=== PATIENT | male | born 1950 | race Caucasian/White ===

== ENCOUNTER 2020-04-23 09:59 | Inpatient (IN) | payer MEDICARE ==
[~2020-04-23 09:59] MED LIST: Dexamethasone 20 MG/5 ML VIAL ONE; Glycopyrrolate 0.2 MG/ML 5 ML SYRINGE ONE; Ketorolac Tromethamine 30 MG/ML VIAL ONE; Lidocaine 1% PF 5 ML VIAL ONE; Ondansetron PF 4 MG/2 ML Vial ONE; PHENYLEPHRINE-NS 100 MCG/ML 10 ML SYRINGE ONE; PROPOFOL 200 MG/20 ML VIAL ONE; Rocuronium Bromide 10 MG/ML (10ML VIAL) ONE; Succinylcholine 200 MG/10 ml SYRINGE FS ONE
[2020-04-23 10:33] LABS: #Eosinphils 0.1 thou/uL (0.0-0.7); #Lymphocytes 1.9 thou/uL (1.20-3.40); #Monocytes 0.4 thou/uL (0.11-0.59); %Basophils 0.4 % (0.0-1.0); %Eosinophils 1.6 % (0.0-10.0); %Lymphocytes 25.4 % (21.0-51.0); %Monocytes 5.6 % (0.0-10.0); Hemoglobin 13.9 g/dL (14.0-18.0); Mean Corpuscular HGB CONC 33.5 g/dL (32.0-36.0); Mean Corpuscular Hemoglobin 30.4 pg (27.0-31.0); Mean Corpuscular Volume 90.6 fL (78.0-98.0); Mean Platelet Volume 6.9 fL (7.4-10.4); Platelet Count 225 thou/uL (130-400); RBC Distribution Width 13.9 % (11.5-14.5); Red Blood Cell (RBC) Count 4.59 mill/uL (4.70-6.10); White Blood Cell (WBC) Count 7.5 thou/uL (4.8-10.8)
--- NOTE | 2020-04-23 10:40 | RAD ---
EXAM: XR Knee Rt 4 View STANDARD PROVIDED CLINICAL HISTORY: Pain FINDINGS: There is no evidence for fracture or other acute osseous abnormality. Alignment appears anatomic. Siria nt spaces appear preserved. IMPRESSION: No evidence for an acute osseous abnormality. If there is persistent clinical concern, conservative m anagement and follow-up imaging advised.
[2020-04-23 11:04] LABS: ALT (SGPT) 7 U/L (8-55); AST (SGOT) 12 U/L (5-34); Albumin 3.8 g/dL (3.4-4.8); Alkaline Phosphatase 84 U/L (40-110); Anion Gap 15 mmol/L (10-20); BUN (Urea Nitrogen) 8 mg/dL (8.4-25.7); Bilirubin, Total 0.9 mg/dL (0.2-1.2); CK (CPK) 44 U/L (30-200); Calc. Creatinine Clearance 0 mL/min (70-130); Calcium 9.2 mg/dL (7.8-10.44); Carbon Dioxide 23 mmol/L (23-31); Chloride 107 mmol/L (98-107); Globulin 3.4 g/dL (2.4-3.5); Glucose 91 mg/dL (80-115); Potassium 3.9 mmol/L (3.5-5.1); Protein, Total 7.2 g/dL (5.8-8.1); Sodium 141 mmol/L (136-145)
[2020-04-23] MEDS ORDERED: Fentanyl 100 MCG/2 ML VIAL ONE ×5 (11:14→19:23)
--- NOTE | 2020-04-23 11:42 | CT ---
EXAM: CT Brain WO Con PROVIDED CLINICAL HISTORY: Fall COMPARISON: None FINDINGS: The ventricular system is nondilated. There is extensive encephalomalacia in the distribution of the left MCA. There is no evidence for intracranial hemorrhage or mass effect. There is no shift of the midline structures. The basilar cisterns appear patent. There is opacification of the left maxillary sinus with associated wall thickening and volume loss, compatible with chronic sinusitis. There is no evidence for an acute abnormality involving the extracranial soft tissues are osseous structures a s visualized. IMPRESSION: No evidence for intracranial hemorrhage or mass effect.
--- NOTE | 2020-04-23 11:48 | CT ---
EXAM: CT cervical spine PROVIDED CLINICAL HISTORY: Injury after a fall. Patient complains of right arm pain. TECHNIQUE: Contiguous axial CT images are obtained through the cervical spine from the skull base to the T3 leve l. Sagittal and coronal reformatted images are provided. COMPARISON: None FINDINGS: Postoperative changes related to anterior cervical fusion are present at the C5-6 level with anterior plate and screws transfixing this level. There is no hardware complication seen. There are degenerative changes seen at the C4-5 and to a lesser extent at the C6-7 levels with disc osteophyte complex present. There is a right posterolateral prominent osteophyte at C4-5 level which results in moderate to severe right-sided neural foraminal narrowing. There is mild to moderate right-sided n eural foraminal narrowing C5-6 level again related to bony encroachment. Posterior osteophyte formation at the C5-6 level results in effacement of ventral subarachnoid space with encroachment on the spinal cord. A left posterolateral prominent osteophyte/uncinate process hypertrophy at the C6-7 level results in moderate to severe left-sided neural foraminal narrowing. No fracture or traumatic subluxation is seen involving the cervical spine. No prevertebral soft tissue swelling apparent. Visualized lung apices appear clear. Visualized thyroid gland demonstrates a grossly normal nonenhanced CT appearance. Scattered vascular calcifications are seen. IMPRESSION: 1. Postoperative and degenerative changes of the cervical spine. 2. No fracture or subluxation involving the cervical spine..
--- NOTE | 2020-04-23 11:52 | CT ---
CT abdomen and pelvis with IV contrast CT lumbar spine noncontrast HISTORY: Fall. Injury. FINDINGS: Minimal atelectasis at the right lung base. No free air or free fluid within the abdomen. A septated cyst within the lateral aspect of the liver dome measures up to 1.2 cm. Calcified granulomata of the spleen and liver consistent with healed granulomatous disease. Diverticula arise from the colon without adjacent inflammation. Vertebral body heights and alignment of the lumbar spine maintained. Oblique fracture partially visualized through the right femoral neck. IMPRESSION : Right hip fracture. No intra-abdominal injury.
--- NOTE | 2020-04-23 12:25 | RAD ---
EXAM: XR Hip Rt 2-3 View PROVIDED CLINICAL HISTORY: Pain status post injury COMPARISON: None FINDINGS: Nondisplaced fracture is demonstrated involving the right femoral neck. No additional fracture is cristian dent. Right hip joint space appears preserved. Contrast material seen within the urinary bladder. IMPRESSION: Nondisplaced right femoral neck fracture.
--- NOTE | 2020-04-23 12:26 | RAD ---
EXAM: XR Femur Rt 2 View STANDARD PROVIDED CLINICAL HISTORY: Pain status post injury COMPARISON: None FINDINGS: Nondisplaced right femoral neck fracture. No additional fracture is evident. Right hip and knee joint spaces appear preserved. IMPRESSION: Nondisplaced right femoral neck fracture.
[2020-04-23 13:26] LABS: PTT 26.4 sec (22.9-36.1); Prothrombin Time 13.1 sec (12.0-14.7)
--- NOTE | 2020-04-23 13:40 | RAD ---
Right hip 2 views HISTORY: Hip fracture. FINDINGS: AP and oblique views confirm oblique fracture through the femoral neck with very mild valgu s angulation.
--- NOTE | 2020-04-23 13:48 | RAD ---
EXAM: XR Pelvis AP STANDARD PROVIDED CLINICAL HISTORY: Preop COMPARISON: None FINDINGS: Nondisplaced right femoral neck fracture is redemonstrated. No additional fracture is evident. Excret ed contrast material is present within the urinary bladder, obscuring portions of the sacrum. Hip joint spaces appear preserved. IMPRESSION: Nondisplaced right femoral neck fracture.
[2020-04-23] MEDS ORDERED: Morphine 4 MG/ML VIAL ONE (14:56)
[2020-04-23] MEDS ORDERED: Ondansetron PF 4 MG/2 ML Vial ONE (14:57)
[2020-04-23] MEDS ORDERED: CEFAZOLIN 2 GM in Premix Bag 1 BAG IVPB SCH (15:30)
[2020-04-23] MEDS ORDERED: Neomycin-Polymyxin 1 ML AMP ONE (15:58)
[2020-04-23 16:05] LABS: SARS-CoV-2 NAA Rapid Test Not Detected (NotDetected)
--- NOTE | 2020-04-23 16:46 | HP ---
This is Conner Lafleur PA-C dictating a report for Dr. Fowler. REQUESTING PHYSICIAN: Dr. Hartman. ATTENDING SURGEON: Dr. Fowler. CONSULTATIONS: Orthopedics, Dr. Lam. HISTORY OF PRESENT ILLNESS: The patient is a 69-year-old man, who was brought to the emergency department after sustaining a ground level fall. The patient lives in an assisted living for the past 3 months after having a CVA. The patient primarily has expressive aphasia due to his CVA and some diffuse weakness. The patient reports that he has had no loss of consciousness. He underwent evaluation and examination in the Emergency Department and was noted to have a right femoral neck fracture at which time we were asked to evaluate the patient for admission and obtain Orthopedic consultations. Unfortunately, the patient did not bring any medical records with him due to his expressive aphasia. It is very difficult to elicit any history from him, and review of [employer] does not appear that he has previous records in our system either. ALLERGIES: NONE. CURRENT MEDICATIONS: 1. Amlodipine. 2. Aspirin. 3. Lisinopril. 4. Atorvastatin. 5. Plavix. 6. Docusate. 7. Potassium chloride tablets. PAST MEDICAL HISTORY: Hypertension, CVA. PAST SURGICAL HISTORY: Unknown. SOCIAL HISTORY: Again, the patient lives in an assisted living currently. Denies drug, tobacco, or alcohol use. REVIEW OF SYSTEMS: A 10-point review of systems is negative unless otherwise stated PHYSICAL EXAMINATION: VITAL SIGNS: Blood pressure 159/93, heart rate 72, respirations 24, oxygen saturation 100% on room air, temperature is 97.8. GENERAL: The patient is resting comfortably in bed. He is awake and alert and is able to answer yes/no questions. Primarily, he does attempt to answer other questions, but his expressive aphasia makes this extremely difficult and appears to be frustrating for him also. HEENT. Head is normocephalic and atraumatic. Eyes, extraocular motion intact. PERRLA bilaterally. Ears are atraumatic without discharge. Nose is atraumatic without discharge. Oropharynx is clear. NECK: Nontender. Trachea is midline. No JVD. CHEST: Clear to auscultation with good inspiratory and expiratory effort. HEART: Regular rate and rhythm. ABDOMEN: Soft, flat, nontender with active bowel sounds. PELVIS: Stable with tenderness to palpation to the right side consistent with his fracture. EXTREMITIES: Neurovascularly intact x4. SKIN: The patient appears to have a rash above his right eye, on his right cheek, and on his upper extremities. BACK: Atraumatic and nontender. LABORATORY FINDINGS: White blood cell count 7.5, hemoglobin 13.9, hematocrit 41.6, platelets 225. Sodium 141, potassium 3.9, chloride 107, CO2 23, BUN 8, creatinine 1.19, glucose 91. LFTs are unremarkable. Troponin is 0.011. PT 13, INR 1.0, PTT 26. RADIOGRAPHIC FINDINGS: AP pelvis shows a nondisplaced right femoral neck fracture. Views of the right hip again demonstrate a femoral neck fracture. Views of the right femur once again demonstrate the femoral neck fracture. CT of the abdomen and pelvis with IV contrast shows the right hip fracture. No intraabdominal injury. CT of the C-spine without contrast shows no fracture or subluxation involving the C-spine. CT of the brain without contrast shows no evidence of intracranial hemorrhage or mass effect. ASSESSMENT AND PLAN: 1. Status post ground level fall. 2. Right proximal femur fracture. 3. Acute pain secondary to above. 4. History of cerebrovascular accident with expressive aphasia. 5. History of hypertension. 6. History of Plavix and aspirin use. PLAN: Plan will be to keep the patient n.p.o. The patient was evaluated in the emergency department by Orthopedics and they plan to take him to the operating room today. We will await his COVID test. Postoperatively, we will begin physical and occupational therapy and discuss placement afterwards. The evaluation, examination, laboratory, and radiographic findings were discussed with Dr. Fowler prior to this dictation. Job ID: [id number]
[2020-04-23] MEDS ORDERED: HYDROmorphone 2 MG/ML VIAL ONE (17:23)
[2020-04-23] MEDS ORDERED: HYDROmorphone 2 MG/ML VIAL SLOW IVP PRN (17:25)
[2020-04-23] MEDS ORDERED: Ondansetron HCl/PF 4 MG/2 ML Vial IVP PRN (17:25)
[2020-04-23] MEDS ORDERED: Promethazine HCl 25 MG/ML VIAL SLOW IVP PRN (17:25)
[2020-04-23] MEDS ORDERED: Dextrose 5% in Water 1,000 ML IV PRN (18:45)
[2020-04-23] MEDS ORDERED: Cyclobenzaprine 10 MG TAB PO PRN (18:45)
[2020-04-23] MEDS ORDERED: Ondansetron PF 4 MG/2 ML Vial IVP PRN (18:45)
[2020-04-23] MEDS ORDERED: Dextrose 50% Abboject 50 ML SYRINGE SLOW IVP PRN (18:45)
[2020-04-23] MEDS ORDERED: hydrALAZINE 20 MG/ML VIAL SLOW IVP PRN (18:45)
[2020-04-23] MEDS ORDERED: Sodium Chloride 0.9% 1,000 ML IV SCH (18:45)
[2020-04-23] MEDS ORDERED: Ondansetron ODT 4 MG TAB PO PRN (18:45)
[2020-04-23] MEDS ORDERED: traMADol HCl 50 MG TAB PO PRN (18:45)
--- NOTE | 2020-04-23 19:22 | OP ---
DATE OF PROCEDURE: 04/23/2020 PROCEDURE PERFORMED: Right hip bipolar hemiarthroplasty. PREOPERATIVE DIAGNOSIS: Displaced right femoral neck fracture. POSTOPERATIVE DIAGNOSIS: Displaced right femoral neck fracture. COMPLICATIONS: None. ESTIMATED BLOOD LOSS: 150 mL. [facility] DIRECTOR: Gil Denise PA-C IMPLANTS: DePuy Basic Press-Dit stem size 7, [place], size +8.5 with a 56-mm bipolar shell. INDICATIONS: Mr. Restrepo is a 69-year-old male, who has fallen and fractured his right femur. He has a femoral neck fracture, which is displaced. He has been indicated for bipolar hemiarthroplasty to restore mobility, prevent complications of prolonged bedrest and provide pain control. Risks have been reviewed in detail. He elected to proceed with the operation. DESCRIPTION OF PROCEDURE: Mr. Restrepo was identified in the preoperative holding area. His correct extremity was marked. He was carried to the operating room. He was positioned supine. He was then converted to the lateral decubitus position. At this point, the patient was given intravenous antibiotics. We then prepped and draped the right lower extremity. We made a posterior approach to the hip. We dissected down through the subcutaneous tissues to the fascia, which was opened. We exposed the underlying short external rotators after splitting the gluteus wil. The short external rotators were subperiosteally divided from the proximal femur. This brought us down onto the acetabulum. We removed the femoral head and femoral neck fragments. We then performed a new osteotomy of the femoral neck. We prepared the proximal femur with reaming, followed by broaching. We broached up to a size 7. At this point, we trialed. A trial of 56 mm was the appropriate size with a +8.5 length. This gave good range of motion and stability. The patient had no instability. At this point, we thoroughly irrigated with copious lavage. We then removed the trial components. We placed our final hip stem and bipolar shell. We then reduced the hip and closed the short external rotators and piriformis as well as the capsule through drill holes. Finally, we closed fascia and subcutaneous layers. A sterile dressing was applied. The patient was taken to the recovery room in good condition. The assistant account manager surgeon was responsible for positioning the patient, preparing the injured extremity, applying the tourniquet, and assisting in preparation for surgery. The assistant account manager was instrumental in reducing the injured limb by applying traction and reduction maneuvers as well as holding retractors and reduction tools. The assistant account manager also was instrumental in assisting in exposure throughout the operation using appropriate retractors. The assistant account manager participated in closure of the operative site as well as dressing application and splint application. Job ID: [id number]
--- NOTE | 2020-04-23 19:22 | RAD ---
RIGHT HIP ONE VIEW: 04/23/20 HISTORY: Postop. This is a lateral view which shows a total hip prosthesis in good position. IMPRESSION: Placement of total hip prosthesis. POS: OFF
--- NOTE | 2020-04-23 19:23 | RAD ---
AP PELVIS: 04/23/20 HISTORY: Postop. Pelvic ring is intact without evidence of fracture. Right hip prosthesis has been placed. No evidence of fracture. Overlying naveen. IMPRESSION: Placement of right hip prosthesis. POS: OFF
[2020-04-23 20:09] VITALS: BMI 28.8
[2020-04-23] MEDS: CEFAZOLIN 2 GM in Premix Bag 1 BAG IVPB SCH (21:52)
[2020-04-23] MEDS: Famotidine 20 MG TAB PO SCH (22:35)
[2020-04-23] MEDS: Ibuprofen 600 MG TAB PO SCH (23:35)
[2020-04-23] MEDS: Acetaminophen 325 MG TAB PO SCH (23:35)
[2020-04-24 05:33] LABS: #Lymphocytes 0.7 thou/uL (1.20-3.40); #Monocytes 0.6 thou/uL (0.11-0.59); #Neutrophils 11.5 thou/uL (1.40-6.50); %Basophils 0.1 % (0.0-1.0); %Eosinophils 0.1 % (0.0-10.0); %Lymphocytes 5.5 % (21.0-51.0); %Monocytes 4.4 % (0.0-10.0); Hemoglobin 11.8 g/dL (14.0-18.0); Mean Corpuscular HGB CONC 33.4 g/dL (32.0-36.0); Mean Corpuscular Hemoglobin 30.4 pg (27.0-31.0); Mean Corpuscular Volume 90.9 fL (78.0-98.0); Mean Platelet Volume 7.2 fL (7.4-10.4); Platelet Count 203 thou/uL (130-400); RBC Distribution Width 13.6 % (11.5-14.5); Red Blood Cell (RBC) Count 3.87 mill/uL (4.70-6.10); White Blood Cell (WBC) Count 12.8 thou/uL (4.8-10.8)
[2020-04-24 05:51] LABS: Anion Gap 13 mmol/L (10-20); BUN (Urea Nitrogen) 10 mg/dL (8.4-25.7); Calc. Creatinine Clearance 92 mL/min (70-130); Calcium 8.4 mg/dL (7.8-10.44); Carbon Dioxide 22 mmol/L (23-31); Chloride 106 mmol/L (98-107); Glucose 129 mg/dL (80-115); Magnesium 1.7 mg/dL (1.6-2.6); Potassium 4.5 mmol/L (3.5-5.1); Sodium 136 mmol/L (136-145)
[2020-04-24] MEDS: Acetaminophen 325 MG TAB PO SCH ×3 (06:08→17:40)
[2020-04-24] MEDS: Ibuprofen 600 MG TAB PO SCH ×3 (06:08→20:46)
[2020-04-24] MEDS: CEFAZOLIN 2 GM in Premix Bag 1 BAG IVPB SCH (06:08)
[2020-04-24] MEDS: Amlodipine 5 MG TAB PO SCH (08:27)
[2020-04-24] MEDS: Lisinopril 20 MG TAB PO SCH (08:27)
[2020-04-24] MEDS: Atorvastatin Calcium 40 MG TAB PO SCH (08:27)
[2020-04-24] MEDS: Famotidine 20 MG TAB PO SCH ×2 (08:27→20:46)
--- NOTE | 2020-04-24 08:41 | PRG ---
DATE OF SERVICE: 04/24/2020 SUBJECTIVE: Jonathan is a 69-year-old male, postop day 1 from a right hip hemiarthroplasty. He is doing relatively well. He awakens easily and he needs a , but he still has expressive speech aphasia. OBJECTIVE: VITAL SIGNS: Temperature 97.8, pulse 70, respiratory rate 18, blood pressure is 128/81. GENERAL: He is alert and responsive, but his expressive aphasia is apparent, but he is grossly nonfocal otherwise. EXTREMITIES: Incision is clean. No strike through. No erythema. No malrotation or shortening of the right lower extremity. LABORATORY DATA: Hemoglobin and hematocrit 11.8 and 35.2. IMPRESSION: 69-year-old male postop day 1 right hip hemiarthroplasty for mid cervical femoral neck fracture. PLAN: Continue current care. Initiate Physical Therapy. Progress towards discharge, but he may require a step-down from assisted living post discharge since he has had more frequent history of falls. Job ID: [id number]
[2020-04-24] MEDS ORDERED: Magnesium 2 GM/50 ML 2 GM in Premix Bag 1 BAG IVPB SCH (08:45)
[2020-04-24] MEDS: Polyethylene Glycol 3350 17 GM Packet PO SCH (10:17)
[2020-04-24] MEDS: Senokot S 8.6-50 MG TAB PO SCH ×2 (10:17→20:49)
[2020-04-24] MEDS: Clopidogrel Bisulfate 75 MG TAB PO SCH (10:17)
--- NOTE | 2020-04-24 11:38 | PDOC.GSPN ---
Surgery Progress Note: Subj - Subjective Patient reports: pain well controlled Narrative: Mr. Restrepo is a 69 year old male who is post op day 1 following a right hip hemiarthroplasty after sustaining a right femoral neck fracture due to a ground level fall. Pt has been living in assisted living following a CVA 3 months ago leading to expressive aphasia. He is doing well today, caregiver is in the room and was able to answer questions. Surgery Progress Note: Obj - Vital signs Vital signs: Vital Signs - Most Recent Temp Pulse Resp BP Pulse Ox 97.8 F 70 18 128/81 99 04/24/20 07:43 04/24/20 08:27 04/24/20 07:43 04/24/20 07:43 04/24/20 07:43 - Physical Exam General: no distress Respiratory: clear to auscultation Psychiatric: other (pt will only answer yes or no questions) Wound: dressing clean,dry,intact, healing well Surgery Progress Note: Results - Labs Result Diagrams: 04/24/20 05:14 04/24/20 05:14 Lab results: Laboratory Results - last 12 hr 04/24/20 04/24/20 04/24/20 05:14 05:14 05:14 WBC 12.8 H RBC 3.87 L Hgb 11.8 L Hct 35.2 L MCV 90.9 MCH 30.4 MCHC 33.4 RDW 13.6 Plt Count 203 MPV 7.2 L Neutrophils % 90.0 H Lymphocytes % 5.5 L Monocytes % 4.4 Eosinophils % 0.1 Basophils % 0.1 Neutrophils # 11.5 H Lymphocytes # 0.7 L Monocytes # 0.6 H Eosinophils # 0.0 Basophils # 0.0 Sodium 136 Potassium 4.5 Chloride 106 Carbon Dioxide 22 L Anion Gap 13 BUN 10 Creatinine 0.96 Estimated GFR (MDRD) 78 Glucose 129 H Calcium 8.4 Phosphorus 3.0 Magnesium 1.7 Surgery Progress Note: A/P - Problem (1) Fracture, proximal femur Current Visit: Yes Code(s): S72.009A - FRACTURE OF UNSP PART OF NECK OF UNSP FEMUR, INIT Status: Acute Qualifiers: Fracture type: closed Laterality: right Assessment and Plan: pt is postop day 1 of right hip hemiarthroplasty. He came from [facility] living and we are currently waiting on placement. (2) History of hypertension Current Visit: Yes Code(s): Z86.79 - PERSONAL HISTORY OF OTHER DISEASES OF THE CIRCULATORY SYSTEM Status: Chronic (3) history of plavix and aspirin use Current Visit: Yes Status: Acute Assessment and Plan: Pt will be started on plavix today and aspirin in 5 days (4) History of CVA (cerebrovascular accident) Current Visit: Yes Code(s): Z86.73 - PRSNL HX OF TIA (TIA), AND CEREB INFRC W/O RESID DEFICITS Status: Chronic Assessment and Plan: Pt had CVA 3 months prior leading to expressive aphasia which is still present Addendum - Attending - Attending Attestation Date/Time: 04/24/20 [id number] I personally evaluated the patient and discussed the management with Dr. [] I agree with the History, Examination, Assessment and Plan documented above with any addition or exceptions noted below.
[2020-04-24] MEDS ORDERED: FLU VACC QS2020-21(65YR UP)/PF 240 MCG/0.7 ML SYRINGE IM ONE (21:00)
[2020-04-25] MEDS: Acetaminophen 325 MG TAB PO SCH ×5 (00:59→23:01)
[2020-04-25] MEDS: Ibuprofen 600 MG TAB PO SCH ×3 (05:25→23:00)
[2020-04-25] MEDS: Famotidine 20 MG TAB PO SCH ×2 (08:16→23:00)
[2020-04-25] MEDS: Atorvastatin Calcium 40 MG TAB PO SCH (08:16)
[2020-04-25] MEDS: Clopidogrel Bisulfate 75 MG TAB PO SCH (08:16)
[2020-04-25] MEDS: Senokot S 8.6-50 MG TAB PO SCH ×2 (08:16→23:02)
[2020-04-25] MEDS: Amlodipine 5 MG TAB PO SCH (08:16)
[2020-04-25] MEDS: Polyethylene Glycol 3350 17 GM Packet PO SCH (08:16)
[2020-04-25] MEDS: Lisinopril 20 MG TAB PO SCH (08:17)
--- NOTE | 2020-04-25 13:26 | PRG ---
DATE OF SERVICE: 04/25/2020 The patient was seen this morning on morning rounds with Dr. Tab Fowler. SUBJECTIVE: Mr. Restrepo is a 69-year-old male, postop day #2, status post right hip arthroplasty for right femoral neck fracture from a ground level fall. The patient normally resides in assisted living facility. He has expressive aphasia. No events overnight. Remains hemodynamically stable. Awaiting placement currently. OBJECTIVE: VITAL SIGNS: Temperature is 97.3, blood pressure 117/73, heart rate is 61, breathing 16 times a minute, 97% on room air. GENERAL: This is a 69-year-old male, sitting up, in no acute distress. Nontoxic appearing. HEENT: Normocephalic, atraumatic. RESPIRATORY: Equal rise and fall. No respiratory distress. CARDIOVASCULAR: Strong pulses. MUSCULOSKELETAL: Dry dressing at his incision site. NEURO: Expressive aphasia is noted. Otherwise, he is alert and oriented. GCS appears to be 15. SKIN: Warm and dry. LABORATORY DATA: Today none to review. ASSESSMENT AND PLAN: 1. Ground level fall. 2. Acute traumatic pain. 3. Right femoral neck fracture, status post open reduction and internal fixation. 4. History of CVA with expressive aphasia. 5. History of hypertension, stable. PLAN: 1. Continue all supportive care. 2. Continue working with PT/OT. 3. Continue to work with Case Management for placement and rehab facility either longterm or [facility]. Answered questions at the patient's bedside. This plan can be updated as needed. Job ID: [id number]
[2020-04-25] MEDS: Enoxaparin Sodium 40 MG/0.4 ML SYRINGE SC SCH (23:00)
[2020-04-26] MEDS: Ibuprofen 600 MG TAB PO SCH ×3 (05:51→20:56)
[2020-04-26] MEDS: Acetaminophen 325 MG TAB PO SCH ×4 (05:52→23:31)
[2020-04-26] MEDS: Polyethylene Glycol 3350 17 GM Packet PO SCH (09:15)
[2020-04-26] MEDS: Atorvastatin Calcium 40 MG TAB PO SCH (09:15)
[2020-04-26] MEDS: Senokot S 8.6-50 MG TAB PO SCH ×2 (09:15→20:56)
[2020-04-26] MEDS: Lisinopril 20 MG TAB PO SCH (09:16)
[2020-04-26] MEDS: Famotidine 20 MG TAB PO SCH ×2 (09:16→20:56)
[2020-04-26] MEDS: Amlodipine 5 MG TAB PO SCH (09:16)
[2020-04-26] MEDS: Clopidogrel Bisulfate 75 MG TAB PO SCH (09:16)
--- NOTE | 2020-04-26 13:55 | PRG ---
DATE OF SERVICE: 04/26/2020 SUBJECTIVE: Mr. Restrepo is a 69-year-old male, postop day #3, status post right hip arthroplasty, right femoral neck fracture from ground level fall. Normally in assisted living, has expressive aphasia. No events overnight. Tolerating walking to the bathroom with nurses. OBJECTIVE: VITAL SIGNS: Temperature 97.8, blood pressure 138/81, respiratory rate is 14, heart rate 60, and 97% on room air. GENERAL: A 69-year-old male, sitting up, in no acute distress. Expressive aphasia noted. HEENT: Normocephalic. RESPIRATORY: Equal rise and fall. No distress. CARDIOVASCULAR: Strong pulses. MUSCULOSKELETAL: Moves well. NEUROLOGIC: Expressive aphasia. Otherwise, alert, oriented. GCS appears to be 15. SKIN: Warm and dry. LABORATORY DATA: There are no laboratory data from today. ASSESSMENT: 1. Ground level fall. 2. Acute traumatic pain. 3. Right femoral neck fracture, status post open reduction and internal fixation. 4. History of CVA with expressive aphasia. 5. History of hypertension, stable. PLAN: 1. Continue all other supportive care. 2. Continue to work with Case Management, placement in rehab facility, updated the patient. 3. food in the room, concern with his expressive aphasia, is unable order. Therefore, we will do a nonselective diet and coordinate with the bedside RN. Job ID: [id number]
[2020-04-26] MEDS: Enoxaparin Sodium 40 MG/0.4 ML SYRINGE SC SCH (20:56)
[2020-04-27] MEDS: Ibuprofen 600 MG TAB PO SCH ×3 (04:44→21:02)
[2020-04-27] MEDS: Acetaminophen 325 MG TAB PO SCH ×4 (04:45→23:11)
[2020-04-27] MEDS: Atorvastatin Calcium 40 MG TAB PO SCH (08:46)
[2020-04-27] MEDS: Clopidogrel Bisulfate 75 MG TAB PO SCH (08:46)
[2020-04-27] MEDS: Senokot S 8.6-50 MG TAB PO SCH ×2 (08:46→21:01)
[2020-04-27] MEDS: Amlodipine 5 MG TAB PO SCH (08:46)
[2020-04-27] MEDS: Famotidine 20 MG TAB PO SCH ×2 (08:46→21:01)
[2020-04-27] MEDS: Polyethylene Glycol 3350 17 GM Packet PO SCH (08:47)
[2020-04-27] MEDS: Lisinopril 20 MG TAB PO SCH (08:47)
[2020-04-27] MEDS ORDERED: Amlodipine 5 MG TAB PO SCH (14:00)
--- NOTE | 2020-04-27 15:24 | PRG ---
DATE OF SERVICE: 04/27/2020 SUBJECTIVE: Mr. Restrepo is a 69-year-old male, postop day #4, status post right hip arthroplasty from right femoral neck fracture and ground level fall. Does have expressive aphasia. The patient actually was seen walking around the halls on [place]-[address] today. Has no acute distress. Tolerating diet. Just waiting for insurance approval. No changes overnight. I have noted that he is somewhat hypertensive on chart review. OBJECTIVE: VITAL SIGNS: Today, temperature is 97.8, blood pressure 165/97, heart rate is 72, breathing 14 times per time, 97% on room air. GENERAL: This is a 69-year-old male, walking around the halls, in no acute distress. HEENT: Normocephalic. RESPIRATORY: Equal rise and fall. No respiratory distress. MUSCULOSKELETAL: Moves all extremities. Does have surgery sites, but is ambulatory. NEURO: Alert and oriented. GCS actually 15 despite expressive aphasia. PSYCH: Normal mood and affect. DIAGNOSTIC STUDIES: There is no laboratory data to review. There is no chemistry to review. ASSESSMENT AND PLAN: 1. Ground level fall. 2. Acute traumatic pain, improving. 3. Right femoral neck fracture, status post open reduction, internal fixation. 4. History of CVA with expressive aphasia. 5. History of hypertension. PLAN: 1. Continue supportive care. 2. We will increase his amlodipine to 10 mg daily from 5 mg daily and continue to monitor blood pressure. 3. Continue to work with Case Management. Hopefully, he can be discharged to rehab facility soon. The patient stated no questions. He is working with PT . Job ID: [id number]
[2020-04-27] MEDS: Enoxaparin Sodium 40 MG/0.4 ML SYRINGE SC SCH (21:02)
[2020-04-28] MEDS: Ibuprofen 600 MG TAB PO SCH ×3 (05:28→21:35)
[2020-04-28] MEDS: Acetaminophen 325 MG TAB PO SCH ×3 (05:28→18:25)
[2020-04-28] MEDS: Atorvastatin Calcium 40 MG TAB PO SCH (08:55)
[2020-04-28] MEDS: Amlodipine 5 MG TAB PO SCH (08:55)
[2020-04-28] MEDS: Clopidogrel Bisulfate 75 MG TAB PO SCH (08:56)
[2020-04-28] MEDS: Senokot S 8.6-50 MG TAB PO SCH ×2 (08:56→21:36)
[2020-04-28] MEDS: Lisinopril 20 MG TAB PO SCH (08:56)
[2020-04-28] MEDS: Polyethylene Glycol 3350 17 GM Packet PO SCH ×3 (08:57→21:40)
[2020-04-28] MEDS: Famotidine 20 MG TAB PO SCH (08:57)
[2020-04-28] MEDS: traMADol HCl 50 MG TAB PO PRN (21:34)
[2020-04-28] MEDS: Enoxaparin Sodium 40 MG/0.4 ML SYRINGE SC SCH (21:36)
[2020-04-29] MEDS: Acetaminophen 325 MG TAB PO SCH ×4 (00:19→18:10)
--- NOTE | 2020-04-29 05:33 | PRG ---
DATE OF SERVICE: 04/28/2020 SUBJECTIVE: Mr. Restrepo is a 69-year-old male, postop day #5, status post right hip arthroplasty from right femoral neck fracture and ground level fall. The patient has a history of expressive aphasia. The patient has been actively working with physical therapy and has been walking. He is feeling well on exam with no pain. No acute events overnight, and at this point, waiting for insurance approval for placement. The patient's hypertension appears to be improving with increase of amlodipine. OBJECTIVE: VITAL SIGNS: Today, temperature 97.8, blood pressure 124/82, max 165/97, heart rate 82, respiration rate 18 per minute, 99% on room air. GENERAL: This is a 69-year-old male, who appears stated age. No acute distress. HEENT: Normocephalic. RESPIRATORY: No acute respiratory distress, equal chest rise and fall. MUSCULOSKELETAL: Moves all extremities with minimal pain to right leg with movement. NEURO: Alert and oriented. GCS 15 with expressive aphasia. The patient is able to give short responses; however, is not able to answer open-ended questions. PSYCH: Normal mood and affect. DIAGNOSTIC STUDIES: No new studies to review. ASSESSMENT AND PLAN: 1. Ground level fall. 2. Acute traumatic pain, improving. 3. Right femoral neck fracture, status post ORIF. 4. History of CVA with expressive aphasia. 5. History of hypertension. PLAN: 1. Continue supportive care with pain control. 2. Continue current antihypertensives, given better blood pressure control over the last 24 hours. 3. Continue to work with Case Management. Hopefully, the patient will be able to be discharged soon. He is working with Physical Therapy and doing well. Job ID: [id number]
[2020-04-29] MEDS: Ibuprofen 600 MG TAB PO SCH ×3 (05:53→21:01)
[2020-04-29] MEDS: traMADol HCl 50 MG TAB PO PRN (08:15)
[2020-04-29] MEDS: Amlodipine 5 MG TAB PO SCH (08:15)
[2020-04-29] MEDS: Clopidogrel Bisulfate 75 MG TAB PO SCH (08:15)
[2020-04-29] MEDS: Atorvastatin Calcium 40 MG TAB PO SCH (08:15)
[2020-04-29] MEDS: Senokot S 8.6-50 MG TAB PO SCH ×2 (08:16→21:00)
[2020-04-29] MEDS: Lisinopril 20 MG TAB PO SCH (08:16)
[2020-04-29] MEDS: Polyethylene Glycol 3350 17 GM Packet PO SCH ×3 (10:40→21:04)
--- NOTE | 2020-04-29 22:19 | PDOC.BPN ---
- Brief Progress Note Encounter Date: 04/29/20 Encounter Time: 21:00 Patient was seen during evening rounds on the surgical floor resting comfortably in no distress. No issues reported by the patients nurse. Vital signs are stable and patient is afebrile. Plan of care is unchanged.
[2020-04-30] MEDS: Acetaminophen 325 MG TAB PO SCH ×3 (00:22→12:53)
[2020-04-30] MEDS: Ibuprofen 600 MG TAB PO SCH ×2 (05:51→12:53)
--- NOTE | 2020-04-30 05:53 | PRG ---
DATE OF SERVICE: 04/29/2020 SUBJECTIVE: Mr. Restrepo is a 69-year-old male, postop day #6, status post right hip arthroplasty from right femoral neck fracture and ground level fall. The patient also has history of expressive aphasia. The patient is working with Physical Therapy and has been walking well in the past few days. Today, he reports that he is feeling well and is comfortably lying in bed. He denies any pain at this time. The patient had no acute events overnight and reports that he had a bowel movement yesterday. There is no bowel movement documented for him. OBJECTIVE: VITAL SIGNS: The patient is afebrile, with fluctuating blood pressure from one-teens to 120s to 140s to 160s systolic. The patient is afebrile, normocardic, and saturating well on room air. GENERAL: A 69-year-old male, who appears stated age, in no acute distress. HEENT: Normocephalic. Contusion above right eye. RESPIRATORY: No acute respiratory distress. Equal chest rise and fall. MUSCULOSKELETAL: Moves all extremities with minimal pain to right leg. NEUROLOGIC: Alert and oriented with baseline expressive aphasia. The patient is able to answer yes or no questions. PSYCH: Normal mood and affect. The patient is excited to hear about possible discharge soon. DIAGNOSTIC STUDIES: No new studies to review. ASSESSMENT AND PLAN: 1. Ground level fall. 2. Acute traumatic pain, improving. 3. Right femoral neck fracture, status post open reduction and internal fixation. 4. History of cerebrovascular accident with expressive aphasia. 5. History of hypertension. PLAN: Continue supportive care with pain control and current antihypertensive regimen. Given the patient's labile blood pressures, we would not want to decrease blood pressure anymore, given age and other risk factors. Continue to work with Case Management. The patient has a bed at [facility], but is waiting on [facility] per medical power of medical fee clerk. There is no documented bowel movement, but the patient reports he had a bowel movement yesterday. Continue to monitor, consider increasing bowel regimen. Job ID: [id number]
[2020-04-30 08:16] VITALS: BP 105/72; TEMP 97.7
[2020-04-30] MEDS: Amlodipine 5 MG TAB PO SCH (09:08)
[2020-04-30] MEDS: Senokot S 8.6-50 MG TAB PO SCH (09:08)
[2020-04-30] MEDS: Lisinopril 20 MG TAB PO SCH (09:09)
[2020-04-30] MEDS: Clopidogrel Bisulfate 75 MG TAB PO SCH (09:09)
[2020-04-30] MEDS: Atorvastatin Calcium 40 MG TAB PO SCH (09:09)
[2020-04-30] MEDS: Polyethylene Glycol 3350 17 GM Packet PO SCH ×2 (09:09→09:13)
--- NOTE | 2020-04-30 14:56 | DIS ---
DATE OF ADMISSION: 04/23/2020 DATE OF DISCHARGE: 04/30/2020 ADMISSION DIAGNOSES: Ground level fall, on aspirin and Plavix and right femoral neck fracture. DISCHARGE DIAGNOSES: Ground level fall, on aspirin and Plavix and right femoral neck fracture. CONSULTING PHYSICIAN: Dr. Lam of Orthopedic Surgery. PROCEDURES: The patient went to the OR on April 23, 2020, and had a right hip bipolar hemiarthroplasty. HOSPITAL COURSE: The patient is a 69-year-old male, presented to the emergency department via EMS after he had a ground level fall, on aspirin and Plavix. He was found to have a right femoral neck fracture. He has a history of recent CVA with generalized weakness and expressive aphasia as well as hypertension. He went to the OR on the day of admission and had a right hip bipolar hemiarthroplasty by Dr. Lam. Postoperatively, he was started on his home medications including his home Plavix. Ultimately, he was discharged to a jail facility at [place] after working with Physical and Occupational Therapy. At the time of discharge, the patient's pain was well controlled. He was tolerating regular diet, working with Physical and Occupational Therapy, and voiding without difficulties. DISCHARGE DISPOSITION: [facility] facility at [place]. DISCHARGE CONDITION: Satisfactory. PHYSICAL EXAMINATION: VITAL SIGNS: Temperature 97.7, pulse 71, respirations 14, oxygen saturation 98% on room air, and blood pressure 105/72. GENERAL: Well-appearing elderly male, sitting up in bed with no signs of acute distress. PULMONARY: Equal chest rise and fall. No signs of acute respiratory distress. NEUROLOGIC: GCS is 15. DISCHARGE INSTRUCTIONS: The patient was discharged to a jail facility. Activity as tolerated. Weightbearing as tolerated in all extremities. Posterior hip precautions to the right lower extremity. He has a regular diet with Ensure t.i.d. He will have Physical and Occupational Therapy as well as an incentive spirometer and a walker. DISCHARGE MEDICATIONS: Include, 1. Tylenol. 2. Amlodipine. 3. Atorvastatin. 4. Plavix. 5. Flexeril. 6. Lipitor. 7. MiraLAX. 8. Senokot. 9. Tramadol. 10. Aspirin. 11. Potassium chloride. FOLLOWUP APPOINTMENTS: The patient is to follow up in clinic with Dr. Lam. No followup is needed with Dr. Fowler in [facility]. This is a summary of the patient's hospitalization. For full details, please see his medical record in its entirety. The patient was seen and evaluated by myself and Dr. Fowler on the day of discharge. The [place] Prescription Monitoring Program was accessed before discharge, and the patient was ultimately sent home on pain medications used to treat his pain while he was in the hospital. Job ID: [id number]
== END 2020-04-30 13:25 | DRG 522 ==
LOC: ERS 09:59 → SDC 15:48 → SJJU 18:45
PROVIDERS: ADMIT Surgery; ATTEND Surgery
PROC: 0SRR0JA Replacement of Right Hip Joint, Femoral Surface with Synthetic Substitute, Uncemented, Open Approach (ICD-10-PCS; principal; 2020-04-23)
DX: S72.001A Fracture of unspecified part of neck of right femur, initial encounter for closed fracture (principal); Z20.822 Contact with and (suspected) exposure to COVID-19; I10 Essential (primary) hypertension; W18.30XA Fall on same level, unspecified, initial encounter; I69.920 Aphasia following unspecified cerebrovascular disease; Z79.82 Long term (current) use of aspirin; Z79.01 Long term (current) use of anticoagulants; Z79.899 Other long term (current) drug therapy
CPT/HCPCS: 36415; 51702; 70450; 72125; 72170; 74177; 80048; 80053; 82550; 83735; 84100; 84484; 85025; 85610; 85730; 93005; 96374; 96375; C1776; G0390; J0690; J1100; J1170; J1650; J1885; J2270; J2405; J2704; J3010; J3475; U0002

== ENCOUNTER 2020-07-01 12:28 | Inpatient (IN) | payer MEDICARE ==
[2020-07-01 13:55] LABS: Hemoglobin 13.7 g/dL (14.0-18.0); Mean Corpuscular HGB CONC 32.3 g/dL (32.0-36.0); Mean Corpuscular Hemoglobin 29.6 pg (27.0-31.0); Mean Corpuscular Volume 91.5 fL (78.0-98.0); Mean Platelet Volume 7.1 fL (7.4-10.4); Platelet Count 254 thou/uL (130-400); RBC Distribution Width 12.7 % (11.5-14.5); Red Blood Cell (RBC) Count 4.63 mill/uL (4.70-6.10); White Blood Cell (WBC) Count 22.4 thou/uL (4.8-10.8)
[2020-07-01 14:01] LABS: ALT (SGPT) 12 U/L (8-55); AST (SGOT) 20 U/L (5-34); Albumin 3.7 g/dL (3.4-4.8); Alkaline Phosphatase 105 U/L (40-110); Anion Gap 18 mmol/L (10-20); BUN (Urea Nitrogen) 10 mg/dL (8.4-25.7); Bilirubin, Total 0.4 mg/dL (0.2-1.2); Calc. Creatinine Clearance 0 mL/min (70-130); Carbon Dioxide 17 mmol/L (23-31); Chloride 107 mmol/L (98-107); Globulin 3.2 g/dL (2.4-3.5); Glucose 128 mg/dL (80-115); Potassium 4.1 mmol/L (3.5-5.1); Protein, Total 6.9 g/dL (5.8-8.1); Sodium 138 mmol/L (136-145)
[2020-07-01 14:09] LABS: Band 13 % (5-11); Lymphocytes 3 % (21-51); MDiff Complete? YES; Monocytes 5 % (0-10); Neutrophil 78 % (42-75); Platelet Morphology Comment Appears Adequate; Polychromasia SLIGHT = 2-3 cells (100X) (0-2/hpf); Reactive Lymphocytes 1 % (0-10)
[2020-07-01] MEDS ORDERED: Cefepime 2 GM VIAL ONE (14:19)
[2020-07-01] MEDS ORDERED: VANCOMYCIN 2 GRAM/400 ML BAG 2 GM in Premix Bag 1 BAG IVPB SCH (14:45)
[2020-07-01 15:37] LABS: Bacteria/HPF None Seen HPF (None Seen); Bilirubin Negative (Negative); Blood, Urine Trace (Negative); Clarity Turbid (Clear); Glucose, Urine (Dipstick) Normal (Negative); Ketone, Urine Trace mg/dL (Negative); Leukocyte Negative Leu/uL (Negative); Nitrite Negative (Negative); Protein, Urine (Dipstick) 50 mg/dL (Neg-Trace); Specific Gravity, Urine 1.025 (1.002-1.036); Squamous Epithelial 0-3 HPF (0-3); Urobilinogen Normal mg/dL (Less than 2); WBC/HPF 0-3 HPF (0-3)
[2020-07-01] MEDS ORDERED: Ondansetron ODT 4 MG TAB PO PRN (16:22)
[2020-07-01] MEDS ORDERED: Ondansetron PF 4 MG/2 ML Vial IVP PRN (16:22)
[2020-07-01] MEDS ORDERED: Acetaminophen 325 MG TAB PO PRN (16:22)
[2020-07-01] MEDS ORDERED: Acetaminophen 650 MG Suppository PR PRN (16:22)
[2020-07-01 16:59] LABS: Lactic Acid 2.4 mmol/L (0.5-2.2)
[2020-07-01] MEDS ORDERED: Cyclobenzaprine 10 MG TAB PO PRN (17:09)
[2020-07-01] MEDS ORDERED: traMADol HCl 50 MG TAB PO PRN (17:09)
[2020-07-01 17:39] LABS: #Lymphocytes 0.9 thou/uL (1.20-3.40); #Monocytes 0.6 thou/uL (0.11-0.59); #Neutrophils 17.1 thou/uL (1.40-6.50); %Basophils 0.1 % (0.0-1.0); %Eosinophils 0.1 % (0.0-10.0); %Lymphocytes 4.9 % (21.0-51.0); %Neutrophils 91.9 % (42.0-75.0); Hemoglobin 13.3 g/dL (14.0-18.0); Mean Corpuscular HGB CONC 33.2 g/dL (32.0-36.0); Mean Corpuscular Hemoglobin 30.2 pg (27.0-31.0); Mean Corpuscular Volume 90.8 fL (78.0-98.0); Mean Platelet Volume 7.2 fL (7.4-10.4); Platelet Count 237 thou/uL (130-400); RBC Distribution Width 12.6 % (11.5-14.5); White Blood Cell (WBC) Count 18.6 thou/uL (4.8-10.8)
[2020-07-01 19:42] VITALS: BMI 27.6
[2020-07-01] MEDS: Acetaminophen 325 MG TAB PO SCH (20:47)
[2020-07-01] MEDS: Lactated Ringer's 1,000 ML IV SCH (20:48)
[2020-07-01] MEDS: Polyethylene Glycol 3350 17 GM Packet PO SCH (20:48)
[2020-07-01] MEDS: Atorvastatin Calcium 40 MG TAB PO SCH (20:48)
[2020-07-01] MEDS: Senokot S 8.6-50 MG TAB PO SCH (20:48)
[2020-07-02] MEDS: Acetaminophen 325 MG TAB PO SCH (00:38)
[2020-07-02] MEDS: Cefepime 2 GM in Sodium Chloride 0.9% 100 ML IVPB SCH ×2 (01:42→13:21)
[2020-07-02] MEDS: Lactated Ringer's 1,000 ML IV SCH ×4 (03:33→16:00)
[2020-07-02] MEDS: VANCOMYCIN 1.25 GM/250 ML BAG 1.25 GM in Premix Bag 1 BAG IVPB SCH ×2 (03:34→15:42)
[2020-07-02 04:54] LABS: SARS-CoV-2 PCR by NAA Not Detected (NotDetected)
[2020-07-02 05:46] LABS: #Eosinphils 0.1 thou/uL (0.0-0.7); #Lymphocytes 1.2 thou/uL (1.20-3.40); #Monocytes 0.8 thou/uL (0.11-0.59); #Neutrophils 12.8 thou/uL (1.40-6.50); %Basophils 0.2 % (0.0-1.0); %Eosinophils 0.8 % (0.0-10.0); %Lymphocytes 7.7 % (21.0-51.0); %Monocytes 5.5 % (0.0-10.0); %Neutrophils 85.7 % (42.0-75.0); Hemoglobin 12.4 g/dL (14.0-18.0); Mean Corpuscular HGB CONC 32.3 g/dL (32.0-36.0); Mean Corpuscular Hemoglobin 29.2 pg (27.0-31.0); Mean Corpuscular Volume 90.4 fL (78.0-98.0); Mean Platelet Volume 7.1 fL (7.4-10.4); Platelet Count 231 thou/uL (130-400); RBC Distribution Width 12.6 % (11.5-14.5); Red Blood Cell (RBC) Count 4.24 mill/uL (4.70-6.10); White Blood Cell (WBC) Count 14.9 thou/uL (4.8-10.8)
[2020-07-02 06:09] LABS: Anion Gap 11 mmol/L (10-20); BUN (Urea Nitrogen) 7 mg/dL (8.4-25.7); Calc. Creatinine Clearance 107 mL/min (70-130); Calcium 8.7 mg/dL (7.8-10.44); Carbon Dioxide 22 mmol/L (23-31); Chloride 110 mmol/L (98-107); Glucose 91 mg/dL (80-115); Potassium 3.5 mmol/L (3.5-5.1); Sodium 139 mmol/L (136-145)
[2020-07-02] MEDS: Lisinopril 20 MG TAB PO SCH (08:34)
[2020-07-02] MEDS: Enoxaparin Sodium 40 MG/0.4 ML SYRINGE SC SCH (08:34)
[2020-07-02] MEDS: Polyethylene Glycol 3350 17 GM Packet PO SCH ×2 (08:34→21:39)
[2020-07-02] MEDS: Senokot S 8.6-50 MG TAB PO SCH ×2 (08:34→21:39)
[2020-07-02] MEDS: Potassium Chloride 8 MEQ TAB PO SCH (08:34)
[2020-07-02] MEDS: Aspirin Chewable 81 MG TAB PO SCH (08:34)
[2020-07-02] MEDS: Amlodipine 5 MG TAB PO SCH (08:35)
[2020-07-02] MEDS: Clopidogrel Bisulfate 75 MG TAB PO SCH (08:35)
[2020-07-02] MEDS: Atorvastatin Calcium 40 MG TAB PO SCH (21:38)
[2020-07-03] MEDS: Cefepime 2 GM in Sodium Chloride 0.9% 100 ML IVPB SCH (01:04)
[2020-07-03] MEDS: Lactated Ringer's 1,000 ML IV SCH ×2 (01:04→08:39)
[2020-07-03 03:23] LABS: #Eosinphils 0.3 thou/uL (0.0-0.7); #Lymphocytes 1.1 thou/uL (1.20-3.40); #Monocytes 0.6 thou/uL (0.11-0.59); #Neutrophils 7.4 thou/uL (1.40-6.50); %Basophils 0.3 % (0.0-1.0); %Eosinophils 2.7 % (0.0-10.0); %Lymphocytes 11.4 % (21.0-51.0); %Monocytes 5.9 % (0.0-10.0); %Neutrophils 79.7 % (42.0-75.0); Hemoglobin 12.6 g/dL (14.0-18.0); Mean Corpuscular HGB CONC 33.6 g/dL (32.0-36.0); Mean Corpuscular Hemoglobin 30.6 pg (27.0-31.0); Platelet Count 191 thou/uL (130-400); RBC Distribution Width 12.6 % (11.5-14.5); Red Blood Cell (RBC) Count 4.12 mill/uL (4.70-6.10); White Blood Cell (WBC) Count 9.3 thou/uL (4.8-10.8)
[2020-07-03 03:30] LABS: Vancomycin, Trough 15.2 ug/mL
[2020-07-03 03:31] LABS: Anion Gap 12 mmol/L (10-20); BUN (Urea Nitrogen) 8 mg/dL (8.4-25.7); Calc. Creatinine Clearance 103 mL/min (70-130); Calcium 8.5 mg/dL (7.8-10.44); Carbon Dioxide 21 mmol/L (23-31); Chloride 108 mmol/L (98-107); Glucose 97 mg/dL (80-115); Potassium 3.5 mmol/L (3.5-5.1); Sodium 137 mmol/L (136-145)
[2020-07-03] MEDS: VANCOMYCIN 1.25 GM/250 ML BAG 1.25 GM in Premix Bag 1 BAG IVPB SCH (04:05)
[2020-07-03] MEDS: Aspirin Chewable 81 MG TAB PO SCH (08:16)
[2020-07-03] MEDS: Enoxaparin Sodium 40 MG/0.4 ML SYRINGE SC SCH (08:17)
[2020-07-03] MEDS: Clopidogrel Bisulfate 75 MG TAB PO SCH (08:17)
[2020-07-03] MEDS: Senokot S 8.6-50 MG TAB PO SCH (08:17)
[2020-07-03] MEDS: Polyethylene Glycol 3350 17 GM Packet PO SCH (08:17)
[2020-07-03] MEDS: Amlodipine 5 MG TAB PO SCH (08:17)
[2020-07-03] MEDS: Lisinopril 20 MG TAB PO SCH (08:18)
[2020-07-03] MEDS: Potassium Chloride 8 MEQ TAB PO SCH (08:38)
[2020-07-03 14:29] VITALS: BP 135/81; TEMP 98
== END 2020-07-03 14:06 | DRG 815 ==
LOC: ERS 12:28 → T4-B 15:37
PROVIDERS: ADMIT Family Medicine; ATTEND Family Medicine
DX: D72.825 Bandemia (principal); R65.10 Systemic inflammatory response syndrome (SIRS) of non-infectious origin without acute organ dysfunction; E87.2 Acidosis; I69.351 Hemiplegia and hemiparesis following cerebral infarction affecting right dominant side; I10 Essential (primary) hypertension; Z20.822 Contact with and (suspected) exposure to COVID-19; Z79.82 Long term (current) use of aspirin; I69.320 Aphasia following cerebral infarction
CPT/HCPCS: 36415; 51701; 70450; 70496; 70498; 71045; 74176; 80048; 80053; 80202; 81003; 81015; 83605; 84145; 84484; 85025; 87040; 87086; 87635; 93005; 96365; 96366; 96367; J0692; J1650; J3370; J3490; U0003; U0005

== ENCOUNTER 2021-11-16 06:50 | Emergency (ER) | payer MEDICARE ==
[2021-11-16 08:01] LABS: #Eosinphils 0.2 thou/uL (0.0-0.7); #Lymphocytes 1.6 thou/uL (1.20-3.40); #Monocytes 0.4 thou/uL (0.11-0.59); #Neutrophils 5.5 thou/uL (1.40-6.50); %Basophils 0.2 % (0.0-1.0); %Eosinophils 2.5 % (0.0-10.0); %Lymphocytes 20.4 % (21.0-51.0); %Monocytes 5.7 % (0.0-10.0); %Neutrophils 71.3 % (42.0-75.0); Hemoglobin 15.5 g/dL (14.0-18.0); Mean Corpuscular HGB CONC 32.6 g/dL (32.0-36.0); Mean Corpuscular Hemoglobin 30.4 pg (27.0-31.0); Mean Corpuscular Volume 93.5 fL (78.0-98.0); Mean Platelet Volume 6.9 fL (7.4-10.4); Platelet Count 217 thou/uL (130-400); RBC Distribution Width 12.4 % (11.5-14.5); Red Blood Cell (RBC) Count 5.09 mill/uL (4.70-6.10); White Blood Cell (WBC) Count 7.8 thou/uL (4.8-10.8)
[2021-11-16 08:23] LABS: Bilirubin Negative (Negative); Blood, Urine Negative (Negative); Clarity Clear (Clear); Glucose, Urine (Dipstick) Normal (Negative); Ketone, Urine Negative (Negative); Leukocyte Negative Leu/uL (Negative); Nitrite Negative (Negative); Protein, Urine (Dipstick) Negative (Neg-Trace); Specific Gravity, Urine 1.011 (1.002-1.036)
[2021-11-16 08:29] LABS: ALT (SGPT) 7 U/L (8-55); AST (SGOT) 13 U/L (5-34); Albumin 3.9 g/dL (3.4-4.8); Alkaline Phosphatase 77 U/L (40-110); Anion Gap 17 mmol/L (10-20); BUN (Urea Nitrogen) 8 mg/dL (8.4-25.7); Bilirubin, Total 1.3 mg/dL (0.2-1.2); Calc. Creatinine Clearance 0 mL/min (70-130); Calcium 9.7 mg/dL (7.8-10.44); Carbon Dioxide 20 mmol/L (23-31); Chloride 105 mmol/L (98-107); Estimated GFR 74; Globulin 3.4 g/dL (2.4-3.5); Glucose 88 mg/dL (80-115); Potassium 4.6 mmol/L (3.5-5.1); Protein, Total 7.3 g/dL (5.8-8.1); Sodium 137 mmol/L (136-145)
== END 2021-11-16 09:59 ==
LOC: ERS 06:50
DX: R25.3 Fasciculation (principal); I10 Essential (primary) hypertension; Z86.73 Personal history of transient ischemic attack (TIA), and cerebral infarction without residual deficits; E78.5 Hyperlipidemia, unspecified; Z86.16 Personal history of COVID-19; Z79.82 Long term (current) use of aspirin; Z79.899 Other long term (current) drug therapy
CPT/HCPCS: 36415; 70450; 80053; 81003; 84484; 85025; 93005